=== PATIENT | female | born 1955 ===

== ENCOUNTER → 2023-05-14 06:09 | Day surgery (SDC) | payer OTHER, SELFPAY | LOC: GI 06:09 | PROVIDERS: ATTENDING PHYSICIAN Internal Medicine Gastroenterology; FAMILY PHYSICIAN Internal Medicine | DX: Z12.11 Encounter for screening for malignant neoplasm of colon (principal); Z86.010 Personal history of colon polyps; K64.8 Other hemorrhoids; D12.0 Benign neoplasm of cecum; D12.2 Benign neoplasm of ascending colon | CPT/HCPCS: 45385; 88305 ==